=== PATIENT | female | born 1955 | race Caucasian/White ===

== ENCOUNTER 2017-02-16 12:55 | Emergency (ER) | payer BC ==
[2017-02-16 13:06] VITALS: BP 123/56
--- NOTE | 2017-02-16 13:38 | RAD ---
INDICATION: Right ankle injury. TECHNIQUE: 3 views of the right ankle were obtained. FINDINGS: There is dorsal soft tissue swelling. There is a fracture extending through the anterior superior aspect of the talus. The fracture fragments appear nondisplaced. Joint spaces appear maintained. IMPRESSION: NONDISPLACED FRACTURE OF THE ANTERIOR ASPECT OF THE TALUS. THIS CAN BE FURTHER DEFINED WITH CT IMAGING CLINICALLY NEEDED.
--- NOTE | 2017-02-16 13:40 | RAD ---
INDICATION: Right foot injury. TECHNIQUE: 3 views of the right foot were obtained. FINDINGS: There is dorsal soft tissue swelling. There is a fracture through the anterior dorsal aspect of the talus which appears nondisplaced. No additional fracture is seen. Joint spaces appear maintained. IMPRESSION: NONDISPLACED FRACTURE OF THE TALUS.
--- NOTE | 2017-02-16 13:51 | UC ---
Lower Extremity/Ankle HPI - HPI Summary HPI Summary: FELL DOWN THE STAIRS 1 WEEK AGO. HAD IMMEDIATE PAIN AND SWELLING RIGHT FOOT AND ANKLE. PAIN HAS PERSISTED WITH MILD SWELLING. PT HAS BEEN WEIGHT BEARING AND AMBULATING WITH A LIMP. CAME IN TODAY BECAUSE JUST NOT GETTING BETTER. - History of Current Complaint Chief Complaint: UCLowerExtremity Stated Complaint: RIGHT FOOT INJURY Time Seen by Provider: 02/16/17 13:34 Hx Obtained From: Patient Onset/Duration: Sudden Onset, Lasting Weeks - 1 WEEK, Still Present Severity Initially: Moderate Severity Currently: Moderate Pain Intensity: 5 Pain Scale Used: 0-10 Numeric Aggravating Factor(s): Standing, Ambulation Alleviating Factor(s): Rest Able to Bear Weight: Yes - WITH PAIN - Allergies/Home Medications Allergies/Adverse Reactions: Allergies Allergy/AdvReac Type Severity Reaction Status Date / Time No Known Allergies Allergy Verified 02/16/17 13:07 PMH/Surg Hx/FS Hx/Imm Hx Previously Healthy: Yes - Surgical History Surgical History: Yes - Family History Known Family History: Positive: Hypertension - Social History Alcohol Use: Weekly Substance Use Type: None Smoking Status (MU): Never Smoked Tobacco Review of Systems Constitutional: Negative Skin: Bruising Respiratory: Negative Cardiovascular: Negative Gastrointestinal: Negative Musculoskeletal: Arthralgia, Decreased ROM, Edema All Other Systems Reviewed And Are Negative: Yes Physical Exam Triage Information Reviewed: Yes Appearance: Well-Appearing, No Pain Distress, Well-Nourished Vital Signs: Initial Vital Signs Temp 98.5 F 02/16/17 13:02 Pulse 69 02/16/17 13:02 Resp 16 02/16/17 13:02 BP 123/56 02/16/17 13:02 Pulse Ox 100 02/16/17 13:02 Vital Signs Reviewed: Yes Eyes: Positive: Conjunctiva Clear ENT: Positive: Hearing grossly normal Neck: Positive: Supple Respiratory: Positive: No respiratory distress, No accessory muscle use Cardiovascular: Positive: Pulses Normal Abdomen Description: Positive: Soft Musculoskeletal: Positive: ROM Limited @ - RIGHT FOOT, Edema @ - RIGHT ANKLE LATERALLY, Other: - TTP RIGHT ANKLE ANTEROLATERALLY. TTP RIGHT METATARSAL HEADS PLANTAR SURFACE Neurological: Positive: Alert Psychological: Positive: Age Appropriate Behavior Skin: Positive: Other - BRUISING RIGHT FOOT. Negative: rashes Diagnostics - Radiology LEFT Xray Interpretation: Positive (See Comments) - Small nondisplaced cortical avulsion fracture at the dorsum of the head of the talus consistent with an avulsion injury related to the talonavicular ligament. Associated thickening of the dorsal joint capsule of the talonavicular joint. Radiology Interpretation Completed By: Radiologist RIGHT ANKLE/FOOT XRAY Xray Interpretation: Positive (See Comments) - NONDISPLACED FRACTURE OF THE ANTERIOR ASPECT OF THE TALUS Radiology Interpretation Completed By: Radiologist Lower Extremity Course/Dx - Differential Dx/Diagnosis Provider Diagnoses: AVULSION FRACTURE RIGHT TALUS - Physician Notifications Discussed Patient Care With: Jomar Weiss - ADVISED CT AND OFFICE F/U [facility] Time Discussed With Above Provider: 14:00 Instructed by Provider To: Have Pt Call For Appt. Discharge - Discharge Plan Condition: Stable Disposition: HOME Patient Education Materials: Talar Fracture in Adults (ED), Avulsion Fracture ( ED) Referrals: [facility] [Provider Group] (CALL FOR AN APPT TO BE SEEN BY DR. ALEJO OR DR. CAN TOMORROW) Kathy Nixon, ROMI [Primary Care Provider] - If Needed Additional Instructions: YOU HAVE AN AVULSION FRACTURE OF THE ANTERIOR TALUS IN YOUR RIGHT ANKLE. WEAR THE CAMBOOT AND BE NON WEIGHT BEARING UNTIL SEEN BY ORTHO TOMORROW. OTC MEDS NEEDED FOR DISCOMFORT.
--- NOTE | 2017-02-16 14:49 | RAD ---
Indication: RIGHT foot pain following injury with forced plantar flexion. Talar fracture on radiographs. Comparison: February 16, 2017 radiographs. Technique: Noncontrast CT RIGHT foot. Multiplanar reformation. Report: Normal articular alignment. Small nondisplaced cortical avulsion fracture at the dorsum of the head of the talus consistent with an avulsion injury related to the talonavicular ligament. Associated thickening of the dorsal joint capsule of the talonavicular joint. No additional fracture evident. Negative for bone fragments along the course of the Lisfranc ligament. Soft tissue edema most prominent at the heel without evidence for a loculated soft tissue plane fluid collection. Mild osteoarthritis at the first metatarsal phalangeal joint and articulation with the sesamoids. IMPRESSION: Small nondisplaced cortical avulsion fracture at the dorsum of the head of the talus consistent with an avulsion injury related to the talonavicular ligament. Associated thickening of the dorsal joint capsule of the talonavicular joint.
== END 2017-02-16 15:15 | disposition home or self-care (01) ==
LOC: UCEAST 12:55
DX: S92.121A Displaced fracture of body of right talus, initial encounter for closed fracture (principal); W10.9XXA Fall (on) (from) unspecified stairs and steps, initial encounter; Y93.01 Activity, walking, marching and hiking; Y92.9 Unspecified place or not applicable; M19.071 Primary osteoarthritis, right ankle and foot
CPT/HCPCS: 99213; G0463